=== PATIENT | female | born 1980 | race Caucasian/White ===

== ENCOUNTER 2017-09-20 23:19 | Emergency (ER) | END 2017-09-21 04:55 | disposition home or self-care (01) ==

== ENCOUNTER 2017-12-02 10:46 | Emergency (ER) | END 2017-12-02 15:15 | disposition home or self-care (01) ==

== ENCOUNTER 2018-05-23 20:13 | Emergency (ER) | payer MEDICAID ==
[~2018-05-23] VITALS: Wt 89.7 kg
[~2018-05-23 20:13] MED LIST: ACET-141 PO; ALPR0.25 PO; CEPH-443 PO; CEPH500C PO; HYDR-4011 PO; IBUP-1542 PO; NAPR-688 PO; ONDA4TAB11 PO; ONDA4TAB8 PO
[2018-05-23] MEDS ORDERED: SOD CHLORIDE 0.9% 1,000 ML IV STA (22:03)
[2018-05-23] MEDS ORDERED: LORAZEPAM 2 MG INJ IV ONE (22:30)
--- NOTE | 2018-05-23 23:22 | ERD ---
ER Documentation Chief Complaint Chief Complaint COE/ ST X'S 4 DAYS, C/O TINGLING OF SCALP, R ARM NUMB HPI 38-year-old female no significant past medical history. The patient presents to the emergency room with approximately 4 days of symptoms. Her symptoms are nonspecific. The patient states that several days ago she started to have numbness to her scalp and her face. She felt that her left arm was possibly numb and tingling but also her right arm. She noted some discomfort around her right ear. This has been waxing and waning since that timeframe. Occasionally she gets some tightness in her chest. She has been told that she gets anxiety in the past. She denies exertional symptoms. She also describes a throat clos ing sensation. No rash no itching. No new medications. Patient denies any source of bleeding or recent illness. During the patient's encounter translation services were utilized Language: Setswana Source: In person ROS All systems reviewed and are negative except as per history of present illness. Medications Home Meds Active Scripts Ondansetron Hcl* (Zofran*) 4 Mg Tablet, 4 MG PO Q6H for NAUSEA AND/OR VOMITING, #30 TAB Prov:CAROL STORMC 12/02/17 Cephalexin* (Keflex*) 500 Mg Capsule, 500 MG PO QID for 7 Days, CAP Prov:CAROL STORM-C 12/02/17 Ibuprofen* (Motrin*) 600 Mg Tab, 600 MG PO Q6, #30 TAB Prov:CAROL STORM-C 12/02/17 Hydrocodone/Acetaminophen ([place] 5-325 Tablet) 1 Each Tablet, 1 TAB PO Q6H PRN for PAIN, #12 TAB Prov:CRAOL STORMC 12/02/17 Alprazolam* (Xanax*) 0.25 Mg Tablet, 0.25 MG PO Q8H PRN for ANXIETY, #10 TAB Prov:CHUCK WASHINGTON DO 09/21/17 Cephalexin* (Cephalexin*) 500 Mg Capsule, 500 MG PO Q8, #9 CAP Prov:CHUCK WASHINGTON DO 09/21/17 Hydrocodone/Acetaminophen ([place] 5-325 Tablet) 1 Each Tablet, 1 EACH PO Q6 for SEVERE PAIN LEVEL 7-10, #10 TAB Prov:CHUCK WASHINGTON DO 09/21/17 Ondansetron (Zofran Odt) 4 Mg Tab.rapdis, 4 MG PO Q6, #10 Prov:CHUCK WASHINGTON DO 09/21/17 Naproxen* (Naproxen*) 500 Mg Tablet, 500 MG PO BID PRN for PAIN, #20 TAB Prov:CHUCK WASHINGTON DO 09/21/17 Reported Medications Acetaminophen* (Acetaminophen*) 500 MG Extra Strength Tablet, 500 MG PO Q4H PRN for PAIN AND OR ELEVATED TEMP, TAB 09/21/17 Allergies Allergies: Uncoded Allergies: NKA (Allergy, Unknown, 03/27/13) PMhx/Soc Medical and Surgical Hx: pt denies Surgical Hx Hx Miscellaneous Medical Probl: Yes (gallstones) Hx Alcohol Use: No Hx Substance Use: No Hx Tobacco Use: No Smoking Status: Never smoker FmHx Family History: No diabetes, No coronary disease Physical Exam Vitals Vital Signs Date Temp Pulse Resp B/P (MAP) Pulse Ox O2 O2 Flow FiO2 Time Delivery Rate 05/23/18 132 22 127/82 98 Room Air 21:49 (97) 05/23/18 89.7 135 20 173/107 98 20:16 (129) Physical Exam General: Well developed, well nourished, no acute distress Head: Normocephalic, atraumatic. Eyes: Pupils equally reactive, EOM intact ENT: Moist mucous membranes, posterior pharynx without swelling or exudates Neck: Supple, no lymphadenopathy Respiratory: Lungs clear bilaterally, no distress Cardiovascular: RRR, no murmurs, rubs, or gallops Abdominal: Soft, non-tender, non-distended, no peritoneal signs : Deferred MSK: No edema, no unilateral swelling, 5/5 strength Neurologic: Alert and oriented, moving all extremities, normal speech, no focal weakness, no cerebellar signs Skin: No rash Psych: Normal mood Result Diagram: 05/23/18221005/23/182210 Results 24 hrs Laboratory Tests Test 05/23/18 22:11 05/23/18 22:21 White Blood Count 11.6 10^3/ul Red Blood Count 4.44 10^6/ul Hemoglobin 12.1 g/dl Hematocrit 36.1 % Mean Corpuscular Volume 81.3 fl Mean Corpuscular Hemoglobin 27.3 pg Mean Corpuscular Hemoglobin Concent 33.5 g/dl Red Cell Distribution Width 13.4 % Platelet Count 399 10^3/UL Mean Platelet Volume 8.6 fl Immature Granulocytes % 0.500 % Neutrophils % 69.0 % Lymphocytes % 20.7 % Monocytes % 8.0 % Eosinophils % 1.5 % Basophils % 0.3 % Nucleated Red Blood Cells % 0.0 /100WBC Immature Granulocytes # 0.060 10^3/ul Neutrophils # 8.0 10^3/ul Lymphocytes # 2.4 10^3/ul Monocytes # 0.9 10^3/ul Eosinophils # 0.2 10^3/ul Basophils # 0.0 10^3/ul Nucleated Red Blood Cells # 0.0 10^3/ul Sodium Level 141 mmol/L Potassium Level 3.5 mmol/L Chloride Level 101 mmol/L Carbon Dioxide Level 28 mmol/L Anion Gap 12 Blood Urea Nitrogen 13 mg/dl Creatinine 0.68 mg/dl Est Glomerular Filtrat Rate mL/min > 60 mL/min Glucose Level 106 mg/dl Calcium Level 8.9 mg/dl Troponin I < 0.012 ng/ml POC Beta HCG, Qualitative NEGATIVE Current Medications Medications Dose Sig/Khadra Start Time Status Last (Trade) Ordered Route PRN Stop Time Admin Dose Reason Admin Sodium 1,000 ml @ Q1H STAT 05/23/18 05/23/18 Chloride 1,000 mls/hr IV 22:03 22:14 05/23/18 23:02 Lorazepam 0.5 mg ONCE ONCE 05/23/18 DC 05/23/18 (Ativan) IV 22:30 22:14 05/23/18 22:31 Procedures/MDM EKG, MONITORS, & DIAGNOSTIC IMAGING: EKG: I reviewed and interpreted a 12-lead EKG. Rhythm: Normal sinus rhythm ST Changes: No contiguous ST segment elevations T waves: No contiguous T wave inversions Impression: [No evidence of acute cardiac ischemia] Chest x-ray: I reviewed and interpreted a 1 view of the chest Mediastinum: No enlargement Cardiac silhouette: No cardiomegaly Airspace: Clear lung mortensen bilaterally without evidence of pneumothorax Bones: No evidence of fracture LAB INTERPRETATION: * CBC reveals no evidence of anemia * Chemistry profile reveals no evidence of dehydration or cardiac ischemia * Negative test MEDICAL DECISION MAKING: The patient has very nonspecific symptoms that include paresthesias, nonspecific chest discomfort. When having a conversation of becoming anxious her heart rate jumped into the 130 range with rapid correction. In the end this is possibly secondary to anxiety. The patient is young and otherwise healthy. She has no risk factors for early cardiac disease, no exertional symptoms. For these reasons I do not believe this is consistent with cardiac etiology. No risk factors or signs or symptoms concerning for pulmonary embolism. It would be reasonable to check test, rule out anemia or electrolyte disturbance. Reassurance provided. ER COURSE: * Laboratory testing and diagnostic imaging is absolutely unrevealing. No acute process at this time. * Vital signs of stabilized and the patient can be safely discharged home. Return precautions were discussed and understood * Patient's blood pressure was elevated (>120/80) but appears stable without evidence of hypertensive emergency or urgency. The patient was counseled about the risks of hypertension and urged to pursue outpatient monitoring and therapy within a week with their primary care physician. CONSULTATION: [None] DISPOSITION PLAN: The patient does not have an identifiable emergent medical condition that warrants inpatient hospitalization at this time. The patient is deemed safe for discharge with outpatient follow-up. We discussed follow up with the patient's primary care doctor within 24 to 48 hours as needed. We also discussed return to the emergency room for worsening symptoms or worsening condition. Outpatient referral: [None required] Discharge Medications: None required Departure Diagnosis: Primary Impression: Paresthesia Additional Impression: Hypertensive urgency Condition: Stable Patient Instructions: Paraesthesias Additional Instructions: Llame al doctor denise valverde (Referral Sources) MAANA y luc bert PATRICK PARA DENTRO DE BERT SEMANA. Dgale a la secretaria que nosotros le instruimos hacer esta patrick.Avise o llame si wong condicin se empeora antes de la patrick. REEMA PERRY MD May 23, 2018 23:22
[2018-05-23 23:58] VITALS: BP 147/96; PULSE 104; RESP 19
== END 2018-05-23 23:59 | disposition home or self-care (01) ==
LOC: E/R 20:13
DX: R20.2 Paresthesia of skin (principal); I16.0 Hypertensive urgency; R07.9 Chest pain, unspecified
CPT/HCPCS: 36415; 71045; 80048; 81025; 84484; 85025; 93005; 96374; J2060; J7030; Z7502

== ENCOUNTER 2018-08-23 08:47 | Emergency (ER) | payer MEDICAID ==
[~2018-08-23] VITALS: Ht 157.5 cm; Wt 88.0 kg
[~2018-08-23 08:47] MED LIST changes: -ALPR0.25 PO; -CEPH-443 PO; -CEPH500C PO; -HYDR-4011 PO; -NAPR-688 PO; -ONDA4TAB8 PO
[2018-08-23 08:52] VITALS: BP 148/92; PULSE 83; RESP 16; Ht 157.5 cm; Wt 88.0 kg
[2018-08-23] MEDS ORDERED: ONDANSETRON 4 MG INJ IV STA (10:15)
[2018-08-23] MEDS ORDERED: morphine 4 MG/ML VIAL IV STA (10:15)
[2018-08-23] MEDS ORDERED: CIPROFLOXACIN 400MG/D5W 200 ML IVPB ONE (11:30)
[2018-08-23] MEDS ORDERED: CIPROFLOXACIN 500 MG TAB PO ONE (12:00)
[2018-08-23] MEDS ORDERED: ONDA8TAB14 PO (12:15)
[2018-08-23] MEDS ORDERED: CIPR500T4 PO (12:15)
[2018-08-23] MEDS ORDERED: HYDR-4011 PO (12:15)
--- NOTE | 2018-08-23 12:18 | ERD ---
ER Documentation Chief Complaint Chief Complaint pt is bib self with c/o abd pain x 4 days HPI 38-year-old female presents with a 4-day history of intermittent right upper quadrant abdominal pain. Pain is worse after eating. She denies any fevers. She has nausea but no vomiting. She denies dysuria or flank pain. She denies of lower abdominal pain. She has no history of gallstones diagnosed last year. She has not seen a surgeon to be evaluated for cholecystectomy. ROS All systems reviewed and are negative except as per history of present illness. Medications Home Meds Active Scripts Ondansetron (Ondansetron Odt) 8 Mg Tab.rapdis, 8 MG PO Q6H PRN for NAUSEA AND/OR VOMITING, #10 TAB Prov:JOJO FLETCHER MD 08/23/18 Ciprofloxacin Hcl* (Ciprofloxacin Hcl*) 500 Mg Tablet, 500 MG PO BID for 5 Days, TAB Prov:JOJO FLETCHER MD 08/23/18 Hydrocodone/Acetaminophen ([place] 5-325 Tablet) 1 Each Tablet, 1 TAB PO Q6H PRN for PAIN, #15 TAB Prov:JOJO FLETCHER MD 08/23/18 Ibuprofen* (Motrin*) 600 Mg Tab, 600 MG PO Q6, #30 TAB Prov:CAROL STORM PA-C 12/02/17 Ondansetron (Zofran Odt) 4 Mg Tab.rapdis, 4 MG PO Q6, #10 Prov:CHUCK WASHINGTON DO 09/21/17 Reported Medications Acetaminophen* (Acetaminophen*) 500 MG Extra Strength Tablet, 500 MG PO Q4H PRN for PAIN AND OR ELEVATED TEMP, TAB 09/21/17 Allergies Allergies: Uncoded Allergies: NKA (Allergy, Unknown, 03/27/13) PMhx/Soc Medical and Surgical Hx: pt denies Medical Hx, pt denies Surgical Hx Hx Miscellaneous Medical Probl: Yes (gallstones) Hx Alcohol Use: No Hx Substance Use: No Hx Tobacco Use: No Smoking Status: Never smoker FmHx Family History: No diabetes, No coronary disease, No other Physical Exam Vitals Vital Signs Date Temp Pulse Resp B/P (MAP) Pulse Ox O2 O2 Flow FiO2 Time Delivery Rate 08/23/18 97.9 83 16 148/92 99 08:52 (110) Physical Exam Const: No acute distress Head: Atraumatic Eyes: Normal Conjunctiva ENT: Normal External Ears, Nose and Mouth. Neck: Full range of motion. No meningismus. Resp: Clear to auscultation bilaterally Cardio: Regular rate and rhythm, no murmurs Abd: Soft, no Ernandez sign. No CVA tenderness. No tenderness at McBurney's point. Non distended. Normal bowel sounds Skin: No petechiae or rashes Back: No midline or flank tenderness Ext: No cyanosis, or edema Neur: Awake and alert Psych: Normal Mood and Affect Result Diagram: 08/23/18 1024 08/23/18 1024 Results 24 hrs Laboratory Tests Test 08/23/18 10:24 08/23/18 10:27 White Blood Count 8.9 10^3/ul Red Blood Count 4.91 10^6/ul Hemoglobin 13.4 g/dl Hematocrit 40.6 % Mean Corpuscular Volume 82.7 fl Mean Corpuscular Hemoglobin 27.3 pg Mean Corpuscular Hemoglobin Concent 33.0 g/dl Red Cell Distribution Width 13.6 % Platelet Count 415 10^3/UL Mean Platelet Volume 8.9 fl Immature Granulocytes % 0.600 % Neutrophils % 71.0 % Lymphocytes % 20.4 % Monocytes % 6.0 % Eosinophils % 1.5 % Basophils % 0.5 % Nucleated Red Blood Cells % 0.0 /100WBC Immature Granulocytes # 0.050 10^3/ul Neutrophils # 6.3 10^3/ul Lymphocytes # 1.8 10^3/ul Monocytes # 0.5 10^3/ul Eosinophils # 0.1 10^3/ul Basophils # 0.0 10^3/ul Nucleated Red Blood Cells # 0.0 10^3/ul Urine Color [place]ILMAR Urine Clarity CLOUDY Urine pH 7.0 Urine Specific [place] 1.016 Urine Ketones NEGATIVE mg/dL Urine Nitrite NEGATIVE mg/dL Urine Bilirubin NEGATIVE mg/dL Urine Urobilinogen 2+ mg/dL Urine Leukocyte Esterase 2+ Michele/ul Urine Microscopic RBC 5 /HPF Urine Microscopic WBC 36 /HPF Urine Squamous Epithelial Cells MODERATE /HPF Urine Amorphous Crystals FEW /HPF Urine Bacteria FEW /HPF Urine Mucus FEW /HPF Urine Hemoglobin 2+ mg/dL Urine Glucose NEGATIVE mg/dL Urine Total Protein NEGATIVE mg/dl Sodium Level 142 mmol/L Potassium Level 3.9 mmol/L Chloride Level 100 mmol/L Carbon Dioxide Level 30 mmol/L Anion Gap 12 Blood Urea Nitrogen 10 mg/dl Creatinine 0.78 mg/dl Est Glomerular Filtrat Rate mL/min > 60 mL/min Glucose Level 119 mg/dl Calcium Level 9.4 mg/dl Total Bilirubin 0.6 mg/dl Direct Bilirubin 0.00 mg/dl Indirect Bilirubin 0.6 mg/dl Aspartate Amino Transf (AST/SGOT) 325 IU/L Alanine Aminotransferase (ALT/SGPT) 451 IU/L Alkaline Phosphatase 236 IU/L Total Protein 8.9 g/dl Albumin 4.8 g/dl Globulin 4.10 g/dl Albumin/Globulin Ratio 1.17 Lipase 69 U/L POC Beta HCG, Qualitative NEGATIVE Current Medications Medications Dose Sig/Khadra Start Time Status Last (Trade) Ordered Route PRN Stop Time Admin Dose Reason Admin Morphine 4 mg ONCE STAT 08/23/18 DC 08/23/18 Sulfate IV 10:15 10:33 (morphine) 08/23/18 10:16 Ondansetron 4 mg ONCE STAT 08/23/18 DC 08/23/18 HCl (Zofran IV 10:15 10:32 Inj) 08/23/18 10:16 200 ml @ ONCE ONCE 08/23/18 DC Ciprofloxacin 200 mls/hr IVPB 11:30 / Dextrose 08/23/18 11:57 500 mg ONCE ONCE 08/23/18 DC Ciprofloxacin PO 12:00 (Cipro) 08/23/18 12:01 Procedures/MDM Right upper quadrant ultrasound shows gallstones with fatty liver. There is borderline dilated common bile duct to 7 mm. CBC shows no leukocytosis. CMP shows moderate transaminitis with no other findings of obstruction. He did have CMP and lipase normal.. Urine shows white blood cells and leukocyte esterase 12 hemoglobin. HCG is negative. Patient was given Cipro 500 mg by mouth for findings of UTI. She is given morphine and Zofran and had resolution of pain and a benign abdomen on serial exam. Patient presents with right upper quadrant abdominal pain with a history of gallstones without signs of choledoc holithiasis, cholecystitis. She has signs of UTI but no signs of sepsis, or flank pain. Will treat with Cipro, short course of [place], Zofran and recommendations for primary care follow-up for evaluation for general surgery referral and cholecystectomy. She is advised to return for fevers, vomiting, pain despite medications, otherwise new or worsening symptoms. The patient was stable with no new complaints during the ER course. Clinically, there is no current evidence to suggest meningitis, sepsis, acute abdomen, pneumonia, stroke, acute coronary syndrome, pulmonary embolism, aortic dissection or any other emergent condition appearing to require further evaluation or hospitalization. Patient counseled regarding my diagnostic impression and care plan. Prior to discharge all questions answered. Pt agrees with treatment plan and understands strict return precautions. Pt is instructed to follow up with primary care provider within 24-48 hours. Precautionary instructions provided including instructions to return to the ER if not improving or for any worsening or changing symptoms or concerns. Departure Diagnosis: Primary Impression: UTI (urinary tract infection) Urinary tract infection type: acute cystitis Hematuria presence: without hematuria Qualified Codes: N30.00 - Acute cystitis without hematuria Additional Impression: Abdominal pain Abdominal location: right upper quadrant Qualified Codes: R10.11 - Right upper quadrant pain Condition: Stable Patient Instructions: Understanding Urinary Tract Infections (UTIs), Gallstones Additional Instructions: No evidence of obstruction, infection and gallbladder today. Recheck for fevers, vomiting or pain despite medication. If signs of UTI and will treat for this. See primary doctor for referral for surgeon for evaluation for removal of gallbladder. Likely need authorization from primary doctor for specialist visit. Va al wong doctor/ specialista para mas evaluacon en el proximo semana. posiblemente necesita autorizado de wong doctor primario para specialista. Regresa para fiebre, o mas o nueva simptomas. JOJO FLETCHER MD Aug 23, 2018 12:18
[2018-08-23] MEDS ORDERED: MAGN400O19 PO (12:27)
== END 2018-08-23 12:28 | disposition home or self-care (01) ==
LOC: FTE 08:47
DX: N30.00 Acute cystitis without hematuria (principal)
CPT/HCPCS: 36415; 76705; 80053; 81001; 81025; 83690; 85025; 96374; 96375; J2270; J2405; Z7502; Z7610